=== PATIENT | female | born 1975 | race Two or more races ===

== ENCOUNTER 2025-01-19 16:08 | Emergency (ER) | payer BC, MEDICAID, SELFPAY ==
[2025-01-19 16:08] VITALS: BMI 30.1
[2025-01-19 16:13] VITALS: BP 155/99; BP 166/105; PULSE 75; RESP 18; TEMP 36.7; O2SAT 100
--- NOTE | 2025-01-19 16:18 | XR_ITS ---
Examination: CT brain head without contrast. 2-D sagittal coronal reconstructions Date and time of exam:January 19, 2025, 1647 hrs. Indications: Onset left-sided body weakness and slurred speech today CTDI: vol (mGy):45.3 DLP: (mGycm):918 Technique: Multiple CT axial sections of the brain have been obtained, 5 mm slice thickness. Contrast has not been administered. 2-D sagittal, coronal reconstructions have been obtained Low dose protocols were performed. One or more of the following dose reduction techniques were used; automated exposure control, adjustment of the mA and/or KV according to patient size, use of iterative reconstruction technique. Findings: No significant ventricular enlargement. Intra-axial or extra-axial hemorrhage density is not seen. No mass effect or midline shift Basal cisterns are not remarkable. Fourth ventricle is midline. Cranial vault intact. Impression: Negative for acute hemorrhage, mass effect or midline shift As clinically warranted, brain MRI follow-up would best assess for acute ischemic change, demyelinating disease
--- NOTE | 2025-01-19 16:30 | PC.NURSE ---
NO STROKE ALERT PER YOU[employer] AGENT PARMJIT
[2025-01-19 16:48] LABS: Basophils # (Auto) 0.1 Thou/mm3 (0.0-0.2); Basophils % (Auto) 1 % (0-2.5); Eosinophils # (Auto) 0.1 Thou/mm3 (0.0-0.5); Eosinophils % (Auto) 1 % (0-10); Hematocrit 34.1 % (36.0-46.0); Hemoglobin 9.9 g/dL (12.0-16.0); Immature Granulocytes % (Auto) 0 % (0-0); Immature Granulocytes Auto 0.03 Thou/mm3 (0.00-0.00); Lymphocytes % (Auto) 21 % (10-50); Mean Corpuscular Hemoglobin 19.8 pg (25.0-35.0); Mean Corpuscular Volume 68 fL (80-100); Monocytes # (Auto) 0.8 Thou/mm3 (0.0-0.8); Monocytes % (Auto) 8 % (0-12); Neutrophils # (Auto) 6.6 Thou/mm3 (1.8-7.7); Neutrophils % (Auto) 69 % (37-80); Nucleated Red Blood Cell % 0 /100 WBC (0); Platelet Count 433 Thou/mm3 (140-440); RDW Standard Deviation 48.5 fL (36.4-46.3); Red Blood Count 4.99 Miln/mm3 (4.00-5.20); White Blood Count 9.6 Thou/mm3 (3.6-11.0)
[2025-01-19 17:00] LABS: Collection Type, Urine Clean Catch
[2025-01-19 17:03] LABS: Bilirubin,Urine Negative (Negative); Blood,Urine 2+ (Negative); Clarity,Urine Clear (Clear/Hazy); Color,Urine Colorless (Lt Yel-Yel); Glucose, Urine Negative (Negative); Ketones,Urine Negative (Negative); Leukocyte Esterase,Urine Negative (Negative); Nitrite,Urine Negative (Negative); Protein,Urine Negative (Neg - Trace); RBC,Urine 2 /hpf (0-3); Specific Gravity,Urine 1.007 (1.001-1.035); Squamous Epithelial Cell,Urine 1 /hpf (0-5); Urobilinogen,Urine Negative mg/dL (0.0-1.0); WBC,Urine 1 /hpf (0-5)
[2025-01-19 17:07] LABS: B-Type Natriuretic Peptide 37 pg/mL (0-100)
[2025-01-19 17:08] LABS: Alanine Aminotransferase 12 U/L (10-49); Albumin, Serum 4.1 gm/dL (3.5-5.0); Albumin/Globulin Ratio 1.5 (1.2-2.2); Alkaline Phosphatase 116 U/L (46-116); Anion Gap 10 (7-16); BUN/Creatinine Ratio 13 Ratio (12-20); Bilirubin,Total 0.5 mg/dL (0.3-1.2); Blood Urea Nitrogen 10 mg/dL (9-23); Calcium 9.3 mg/dL (8.3-10.6); Calcium (Corrected) 9.3 mg/dL (8.5-10.1); Carbon Dioxide 26.8 mMol/L (20.0-31.0); Chloride 102 mMol/L (98-107); Creatinine (Component) 0.8 mg/dL (0.6-1.3); Estimated Creatinine Clearance 84.6 mL/min (>60); Globulin 2.7 gm/dL (2.3-3.5); Glucose 100 mg/dL (74-106); Magnesium 1.9 mg/dL (1.6-2.6); Osmolality,Calculated 276 (275-295); Potassium 4.2 mMol/L (3.4-5.1); Sodium 139 mMol/L (136-145); Total Protein 6.8 gm/dL (5.7-8.2); Troponin I < 0.002 ng/mL (0.0-0.045); eGFR > 60 See Note
[2025-01-19 17:15] LABS: Path Review Blood Smear Sent to Pathologist
[2025-01-19 17:36] LABS: INR 0.9 (0.9-1.3); Partial Thromboplastin Time 24.8 Seconds (22.0-36.0); Prothrombin Time 10.3 Seconds (9.0-12.2)
--- NOTE | 2025-01-19 18:10 | PD.EDHA ---
ED Headache RME/HPI General Chief Complaint: General Adult/Misc Complain Stated Complaint: L SIDE WEAKNESS Time Seen by Provider: 01/19/25 16:39 Arrival date/time: 01/19/25 16:08 This is a 50-year-old female that is brought into the emergency room with complaints of dizziness, left arm tingling and a mild headache. Patient states symptoms started at 4 AM this morning. Patient states she got up to go to the restroom and started having tingling to her left arm and some dizziness. Per patient this resolved after a few seconds. Patient states that when she got up to go to work she felt better. Patient states that while she was at work she kind of felt like she had some generalized weakness. Patient states one of her coworkers told her she had a slurred speech. When she asked other coworkers around her they said she did not have slurred speech. Patient has no focal deficits. Patient does have a history of high blood pressure. Patient reports taking her medication as scheduled. Patient denies fever, nausea, vomiting. Upon assessment patient denies headache. Patient denies any sick contacts. Related Data Home Medications ?Medication ?Instructions ?Recorded ?Confirmed amlodipine 5 mg tablet 5 mg PO QDAY 10/01/17 06/22/19 lisinopril 20 mg tablet 20 mg PO QDAY 10/01/17 06/22/19 metoprolol succinate 100 mg 150 mg PO QDAY 10/01/17 06/22/19 tablet,extended release 24 hr (Toprol XL) Allergies Allergy/AdvReac Type Severity Reaction Status Date / Time ibuprofen Allergy Intermediate swelling Verified 06/22/19 18:47 in throat triamcinolone (From Kenalog) Allergy Intermediate Swelling Verified 06/22/19 18:47 of Lip/Tongue/Throat Course Orders Category Date Time Status Refining Equipment Operator NOW Care 01/19/25 16:18 Active EKG (ED ONLY) *Do not use* NOW Care 01/19/25 16:[address] head/brain wo con Stat Exams 01/19/25 16:18 Completed EKG (ED Only) Stat Exams 01/19/25 16:18 Ordered B-Type Natriuretic Peptide Stat Lab 01/19/25 16:28 Completed CBC Stat Lab 01/19/25 16:28 Completed Comprehensive Metabolic Panel Stat Lab 01/19/25 16:28 Completed Magnesium Stat Lab 01/19/25 16:28 Completed Partial Thromboplastin Time Stat Lab 01/19/25 16:28 [address] Review Blood Smear Stat Lab 01/19/25 16:28 Completed Prothrombin Time with INR Stat Lab 01/19/25 16:28 Completed Troponin I Stat Lab 01/19/25 16:28 Completed Urinalysis Stat Lab 01/19/25 16:44 Completed Vital Signs Vital signs: Vital Signs Temperature 98.1 F 01/19/25 16:13 Pulse Rate 75 01/19/25 16:13 Respiratory Rate 18 01/19/25 16:13 Blood Pressure 166/105 H 01/19/25 16:13 Pulse Oximetry (%) 100 01/19/25 16:13 Oxygen Delivery Method Room Air 01/19/25 16:13 Procedures -ED EKG Interpretation #1: Date of EK01/19/25 Time of EK:18 Rate: 74 Interpretation: Interpreted by me (Sinus rhythm) EKG Impression: No ectopy, Normal QRS and Normal intervals Headache MDM Narrative MDM Narrative:: Discussed case with Rupal Cool. Patient spoke to patient at length. Patient ambulatory, no dizziness no headache has no complaints at this time. Patient has no focal deficits. Labs reviewed. White count 9.6 hemoglobin hematocrit are 9.9 and 34.1. PT/INR unremarkable BMP unremarkable urine does show blood but patient having some vaginal bleeding. Patient reports that she has had some irregular vaginal spotting that she has been seen at [facility]. Patient does not know if she was laying on her left arm when she woke up this morning at 4 AM and thus why he she had tingling. Patient states that only one of her staff members told her that she had slurred speech but the rest of them told her that she did not. She does not know if she actually had slurred speech but does not think so. Patient would like to go home. I explained to patient that if symptoms change or worsen to come back to the emergency room. Patient feels comfortable with discharge at this time. Patient ambulatory with steady gait. ct head: Findings: No significant ventricular enlargement. Intra-axial or extra-axial hemorrhage density is not seen. No mass effect or midline shift Basal cisterns are not remarkable. Fourth ventricle is midline. Cranial vault intact. Impression: Negative for acute hemorrhage, mass effect or midline shift As clinically warranted, brain MRI follow-up would best assess for acute ischemic change, demyelinating disease Discharge Plan Plan Patient Disposition: HOME (Self Care) Patient condition on transfer: Stable Prescriptions/Referrals Prescriptions/Med Rec: No Action lisinopril 20 mg tablet 20 mg PO QDAY metoprolol succinate [Toprol XL] 100 mg tablet extended release 24 hr 150 mg PO QDAY amlodipine 5 mg tablet 5 mg PO QDAY Referrals: Angely Ellis MD [Primary Care Provider] - In 1 week Problem List Clinical Impression: Hypertension Patient/Caregiver Discharge Instructions Discharge Activity: activity as tolerated Education Materials: ED High Blood Pressure ... Additional Instructions: Follow up with primary provider in 1-2 days. Come back to ED if symptoms change or worsen. Continue to document blood pressure at home as instructed by primary provider. Print Language: Khmer Stand Alone Forms: Katia Award Info., Patient Portal Info Letter PA/CORPORATE LICENSED BROKER Supervising Physician PA/CORPORATE LICENSED BROKER Supervising Physician: rupal
[2025-01-19 18:40] VITALS: BP 122/72; PULSE 65; RESP 16; TEMP 36.9; O2SAT 97
== END 2025-01-19 19:02 | disposition home or self-care (01) ==
PROVIDERS: Nurse Practitioner Primary Care; Emergency Provider Family Medicine; PCP Family Medicine
DX: I10 Essential (primary) hypertension (principal); R47.81 Slurred speech; R53.1 Weakness
CPT/HCPCS: 36415; 70450; 80053; 81001; 83735; 83880; 84484; 85025; 85610; 85730; 93005; 99284